=== PATIENT | male | born 1990 | race Asian ===

== ENCOUNTER 2020-11-22 16:06 | Emergency (ER) | payer MEDICAID, OTHER ==
[~2020-11-22] VITALS: Ht 172.7 cm; Wt 67.9 kg
[2020-11-22 16:08] VITALS: BP 121/69
[2020-11-22] MEDS ORDERED: CEPHALEXIN 500 MG CAP PO ONE (18:00)
[2020-11-22] MEDS ORDERED: LIDOCAINE 1% MDV 20ML VIAL SC ONE (18:00)
[2020-11-22] MEDS ORDERED: BOOSTRIX/ADACEL VACCINE (DIPHTH/PERTUSS/ACELL/TETANUS) 0.5ML SYR IM ONE (18:00)
[2020-11-22] MEDS ORDERED: KEFL500C17 PO (18:36)
[2020-11-22] MEDS ORDERED: BACI500O21 TOP (18:38)
== END 2020-11-22 18:50 | disposition home or self-care (01) ==
LOC: M ED 16:06
DX: S61.211A Laceration without foreign body of left index finger without damage to nail, initial encounter (principal); W26.0XXA Contact with knife, initial encounter; Y92.9 Unspecified place or not applicable; Y93.G3 Activity, cooking and baking; Y99.0 Civilian activity done for income or pay